=== PATIENT | male | born 1985 | race African-American/Black ===

== ENCOUNTER 2018-02-06 11:19 | Inpatient (IN) | payer OTHER ==
[~2018-02-06] VITALS: Ht 185.4 cm; Wt 74.1 kg
[~2018-02-06 11:19] MED LIST: ADVATE PO
[2018-02-06 11:37] VITALS: Ht 185.4 cm; Wt 74.1 kg
[2018-02-06 12:38] LABS: BASOPHIL % 0.4 % (0-2); PLATELET COUNT 310 x10^3mcL (130-400); RED CELL DISTRIBUTION WIDTH 14.2 % (11.5-14.5)
[2018-02-06 12:42] LABS: CALCIUM 8.7 mg/dL (8.5-10.1); CARBON DIOXIDE 26.2 mmol/L (21-32); CHLORIDE SERUM 105 mmol/L (98-107); CREATININE SERUM 0.8 mg/dL (0.7-1.3); GFR1 > 60 mL/min; GLUCOSE SERUM 90 mg/dL (74-106); POTASSIUM SERUM 3.4 mmol/L (3.5-5.1); SODIUM SERUM 143 mmol/L (136-145)
[2018-02-06 12:48] LABS: ALBUMIN 4.5 g/dL (3.4-5.0); ALKALINE PHOSPHATASE 87 U/L (46-116); ALT/SGPT 23 U/L (16-63); AST/SGOT 20 U/L (15-37); BILIRUBIN TOTAL 0.3 mg/dL (0.20-1.00)
[2018-02-06 12:49] LABS: TOTAL PROTEIN, SERUM 8.3 g/dL (6.4-8.2)
[2018-02-06 15:01] LABS: FREE T4 1.03 ng/dL (0.76-1.46); FREE THYROXINE INDEX 2.6 ug/dL (1.4-4.5); T4(THYROXINE) 7.8 ug/dL (4.7-13.3)
[2018-02-06 15:20] LABS: CHOLESTEROL/HDL RATIO 3.8; MAGNESIUM 2.3 mg/dL (1.8-2.4); PHOSPHOROUS 3.9 mg/dL (2.5-4.9)
[2018-02-06 15:34] LABS: T3 TOTAL 0.93 ng/mL
[2018-02-06 15:37] VITALS: BP 126/90
[2018-02-06 17:30] VITALS: BP 138/99
[2018-02-06 17:45] VITALS: BP 138/97
[2018-02-06 17:55] VITALS: BP 136/90
[2018-02-06] MEDS ORDERED: [UNRECOGNIZED DRUG - OTHER] IV (18:33)
[2018-02-06 19:13] LABS: UA SPECIFIC GRAVITY 1.025 (1.005-1.035); microscopic required? YES; urine erythrocyte TRACE (NEGATIVE)
[2018-02-06 19:23] LABS: AMPHETAMINE QUAL UR NONE DETECTED (See below)
[2018-02-06 21:26] VITALS: BP 112/79
[2018-02-07 05:52] VITALS: BP 136/95
[2018-02-07 06:32] LABS: CALCIUM 8.4 mg/dL (8.5-10.1); CARBON DIOXIDE 30.6 mmol/L (21-32); CHLORIDE SERUM 102 mmol/L (98-107); CREATININE SERUM 0.9 mg/dL (0.7-1.3); GFR1 > 60 mL/min; GLUCOSE SERUM 82 mg/dL (74-106); POTASSIUM SERUM 3.7 mmol/L (3.5-5.1); SODIUM SERUM 140 mmol/L (136-145)
[2018-02-07 07:04] LABS: BASOPHIL % 0.3 % (0-2); PLATELET COUNT 254 x10^3mcL (130-400); RED CELL DISTRIBUTION WIDTH 14.4 % (11.5-14.5)
[2018-02-07 10:02] VITALS: BP 122/85
[2018-02-07 11:12] VITALS: BP 122/85
== END 2018-02-07 12:25 | disposition home or self-care (01) | DRG 52 ==
LOC: ED 11:19 → DU 13:39 → MU 02-07 10:55
PROVIDERS: Emergency Medicine; Family Medicine Sports Medicine
PROC: 30233M1 Transfusion of Nonautologous Plasma Cryoprecipitate into Peripheral Vein, Percutaneous Approach (ICD-10-PCS; principal; 2018-02-06)
DX: G92 Toxic encephalopathy (principal); N17.0 Acute kidney failure with tubular necrosis; D66 Hereditary factor VIII deficiency; E78.5 Hyperlipidemia, unspecified; E87.6 Hypokalemia; F10.129 Alcohol abuse with intoxication, unspecified; F17.290 Nicotine dependence, other tobacco product, uncomplicated; S70.12XA Contusion of left thigh, initial encounter; W18.39XA Other fall on same level, initial encounter; Y90.0 Blood alcohol level of less than 20 mg/100 ml; Y93.89 Activity, other specified; Y92.511 Restaurant or cafe as the place of occurrence of the external cause; Y99.8 Other external cause status
CPT/HCPCS: 83880; 84439; G0480; J7030; P9012; Q0092; Q0163